=== PATIENT | male | born 1965 | race Native Hawaiian/Other Pacific Islander ===

== ENCOUNTER 2018-05-23 09:50 | Outpatient (CLI) | payer OTHER | END 2018-05-23 20:20 | disposition home or self-care (01) | LOC: RAD 09:50 | DX: Z13.6 Encounter for screening for cardiovascular disorders (principal); R06.02 Shortness of breath; I71.2 Thoracic aortic aneurysm, without rupture ==

== ENCOUNTER 2018-05-26 11:48 | Outpatient (CLI) | payer OTHER | END 2018-05-26 21:21 | disposition home or self-care (01) | LOC: RAD 11:48 | DX: R06.02 Shortness of breath (principal); R79.82 Elevated C-reactive protein (CRP); I71.2 Thoracic aortic aneurysm, without rupture ==

== ENCOUNTER 2019-03-01 07:36 | Outpatient (CLI) | payer OTHER | END 2019-03-01 23:43 | disposition home or self-care (01) | LOC: RESP 07:36 → RAD 07:36 → RESP 08:00 | DX: R06.02 Shortness of breath (principal) ==

== ENCOUNTER 2020-12-20 10:53 | Outpatient (CLI) | payer OTHER ==
[~2020-12-20] VITALS: Ht 165.1 cm; Wt 99.8 kg
[2020-12-20 11:46] LABS: PLATELET COUNT 248 K/uL (142-355)
[2020-12-20 12:21] LABS: POTASSIUM 5.1 mmol/L (3.6-5.2)
== END 2020-12-20 19:34 | disposition home or self-care (01) ==
LOC: INF 10:53
PROVIDERS: ATTEND Internal Medicine
DX: U07.1 COVID-19 (principal)
CPT/HCPCS: 36415; 36591; 80053; 85027; 96365; Q0239